=== PATIENT | female | born 1970 | race African-American/Black ===

== ENCOUNTER 2016-12-10 14:22 | Inpatient (IN) | payer MEDICAID ==
[~2016-12-10] VITALS: Ht 172.7 cm; Wt 94.3 kg
[2016-12-10] MEDS ORDERED: ASPIRIN 325MG EC TABLET PO ONE (15:30)
[2016-12-10 15:54] LABS: INR 1.1; PROTHROMBIN TIME 11.1 sec
[2016-12-10 15:55] LABS: BASOPHILS % 0.4 % (0.0-2.0); EOSINOPHILS % 0.8 % (0.0-5.0); HEMATOCRIT. 36.9 % (36.0-48.0); HEMOGLOBIN. 12.6 g/dL (12.0-16.0); LYMPHOCYTES % 27.6 % (20.0-50.0); MEAN CORPUSCULAR HEMOGLOBIN 29.4 pg (28.0-32.0); MEAN CORPUSCULAR VOLUME 86.1 fL (81.0-99.0); MEAN PLATELET VOLUME 8.2 fl (7.4-10.4); MONOCYTES % 7.1 % (2.0-8.0); NEUTROPHILS % 64.1 % (40.0-76.0); PLATELET 263 x1000/uL (130-400); RED BLOOD CELL COUNT 4.28 mill/uL (4.2-5.4)
[2016-12-10 16:02] LABS: CARBON DIOXIDE 27 mEq/L (21-32); CHLORIDE 99 mEq/L (98-107); TROPONIN I < 0.02 ng/mL (0.00-0.04)
[2016-12-10] MEDS ORDERED: POTASSIUM CHLORIDE INJ 30 MEQ in DEXT 5%/0.9% NACL 1,000 ML IV ONE (16:15)
[2016-12-10 17:14] LABS: *AMPHETAMINES SCREEN URINE NEGATIVE (NEGATIVE); *BARBITURATES SCREEN URINE NEGATIVE (NEGATIVE); *BENZODIAZEPINES SCREEN URINE NEGATIVE (NEGATIVE); METHADONE URINE SCREEN NEGATIVE (NEGATIVE); OPIATES URINE SCREEN NEGATIVE (NEGATIVE); PHENCYCLIDINE URINE SCREEN NEGATIVE (NEGATIVE)
[2016-12-10 17:21] LABS: *COCAINE SCREEN URINE PRESUMTIVE POSITIVE (NEGATIVE); CANNABINOID URINE SCREEN PRESUMTIVE POSITIVE (NEGATIVE)
[2016-12-10 17:26] LABS: CLARITY URINE CLEAR (CLEAR); COLOR URINE YELLOW (YELLOW); GLUCOSE URINE NEGATIVE (NEGATIVE); KETONES URINE TRACE (NEGATIVE); NITRITE URINE NEGATIVE (NEGATIVE); OCCULT BLOOD URINE 1+ (NEGATIVE); PH URINE 6.5 (4.5-8.0); PROTEIN URINE NEGATIVE (NEGATIVE); SPECIFIC GRAVITY URINE 1.023 (1.005-1.030)
[2016-12-10 17:27] LABS: LEUKOCYTE ESTERASE URINE TRACE (NEGATIVE)
[2016-12-10] MEDS ORDERED: CLONIDINE 0.1MG TABLET PO PRN (21:15)
[2016-12-10] MEDS ORDERED: ACETAMINOPHEN 325MG TABLET PO PRN (21:15)
[2016-12-10] MEDS ORDERED: HYDROCODONE/ACETAMINOPHEN 5/325MG TABLET PO PRN (21:15)
[2016-12-10] MEDS ORDERED: POTASSIUM CHLORIDE 20MEQ TABLET SR PO ONE (21:15)
[2016-12-10 22:42] LABS: CREATINE KINASE 174 IU/L (26-192); CREATINE KINASE MB FRACTION 0.7 ng/mL (0.5-3.6); TROPONIN I < 0.02 ng/mL (0.00-0.04)
[2016-12-11] VITALS: BP 141/80
[2016-12-11 01:00] VITALS: BP 141/80
[2016-12-11 04:00] VITALS: BP 134/82
[2016-12-11] MEDS ORDERED: SIMV10TA6 PO (04:12)
[2016-12-11] MEDS ORDERED: HYDR25TA PO (04:12)
[2016-12-11 07:07] LABS: BASOPHILS % 0.5 % (0.0-2.0); CARBON DIOXIDE 26 mEq/L (21-32); CHLORIDE 104 mEq/L (98-107); CREATINE KINASE 187 IU/L (26-192); CREATINE KINASE MB FRACTION 1.5 ng/mL (0.5-3.6); EOSINOPHILS % 1.1 % (0.0-5.0); HDL CHOLESTEROL 56 mg/dL (40-59); HEMATOCRIT. 34.5 % (36.0-48.0); HEMOGLOBIN. 11.6 g/dL (12.0-16.0); LDL CHOLESTEROL 57 mg/dL (5-100); LYMPHOCYTES % 34.5 % (20.0-50.0); MEAN CORPUSCULAR HEMOGLOBIN 29.3 pg (28.0-32.0); MEAN CORPUSCULAR VOLUME 87.1 fL (81.0-99.0); MEAN PLATELET VOLUME 8.1 fl (7.4-10.4); MONOCYTES % 9.6 % (2.0-8.0); NEUTROPHILS % 54.3 % (40.0-76.0); PLATELET 232 x1000/uL (130-400); RED BLOOD CELL COUNT 3.97 mill/uL (4.2-5.4); RED CELL DISTRIBUTION WIDTH 16.9 % (11.6-14.6); TROPONIN I < 0.02 ng/mL (0.00-0.04)
[2016-12-11 08:00] VITALS: BP 134/70
[2016-12-11] MEDS ORDERED: ASPIRIN 81MG EC TABLET PO SCH (09:00)
[2016-12-11] MEDS ORDERED: POTASSIUM CHLORIDE 20MEQ TABLET SR PO NR (11:30)
[2016-12-11 12:00] VITALS: BP 128/81
[2016-12-11 14:19] VITALS: BP 128/81
== END 2016-12-11 14:45 | disposition home or self-care (01) | DRG 203 ==
LOC: ER 14:22 → 5WST 19:55 → EDBEDREQ 20:01 → EDBEDREQTM 20:01 → ENRESERV 23:29
PROVIDERS: ADMIT Hospitalist; ATTEND Hospitalist
DX: R07.89 Other chest pain (principal); N17.0 Acute kidney failure with tubular necrosis; E87.6 Hypokalemia; N39.0 Urinary tract infection, site not specified; I10 Essential (primary) hypertension; F14.10 Cocaine abuse, uncomplicated; F17.210 Nicotine dependence, cigarettes, uncomplicated; E11.9 Type 2 diabetes mellitus without complications; R31.9 Hematuria, unspecified; R82.4 Acetonuria; R82.71 Bacteriuria; F12.10 Cannabis abuse, uncomplicated; Z71.6 Tobacco abuse counseling
CPT/HCPCS: 36415; 71010; 71250; 74176; 80053; 80061; 80305; 81001; 82550; 82553; 83036; 83605; 83880; 84484; 85025; 85610; 85651; 93005; 96365; 96366; 99285; J3480; J7042